=== PATIENT | female | born 1965 | race Caucasian/White ===

== ENCOUNTER 2020-05-12 17:35 | Emergency (ER) | payer MEDICAID, OTHER ==
[~2020-05-12] VITALS: Ht 170.2 cm; Wt 62.6 kg
[2020-05-12] MEDS ORDERED: OMNIPAQUE ORAL SOLN 500ml 12mg/ml PO ONE (18:06)
[2020-05-12 18:53] LABS: Hematocrit 14.9 % (36.0-46.0); Mean Corpuscular Hemoglobin 12.1 pg (28.0-32.0); Mean Corpuscular Hgb Conc. 24.3 g/dL (32.0-36.0); Mean Corpuscular Volume 49.6 fL (80.0-100.0); Platelet Count (auto) 328 10^3/uL (140-450); White Blood Cell 5.7 10^3/uL (4.4-10.8)
[2020-05-12 19:06] LABS: Red Cell Distribution Width 22.6 % (11.8-14.3)
[2020-05-12 19:08] LABS: Albumin 2.9 g/dL (3.4-5.0); Calcium 8.1 mg/dL (8.5-10.1); Potassium 4.2 mmol/L (3.5-5.1)
[2020-05-12 19:10] LABS: Bilirubin, Total 0.3 mg/dL (0.2-1.0); Total Protein 6.6 g/dL (6.4-8.2)
[2020-05-12 19:12] LABS: Band Neutrophils % (manual) 0; Basophils % (manual) 0 (0.0-2.0); Blast Cells 0; Hemoglobin 3.6 g/dL (12.2-16.2); Metamyelocytes % 0; Myelocytes % 0; Promyelocytes % 0; Reactive Lymphocytes 0
[2020-05-12 19:18] LABS: Magnesium 2.4 mg/dL (1.6-2.6)
[2020-05-12 19:56] LABS: Eosinophils % (manual) 3 (0-7); Lymphocytes % (manual) 20 (10.0-50.0); Monocytes % (manual) 8 (0-12)
[2020-05-12 20:31] VITALS: BP 116/62
[2020-05-12 20:44] VITALS: BP 119/58
[2020-05-12 20:51] LABS: INR 1.01 (0.9-1.15); Partial Thromboplastin Time 27.6 sec (23.0-31.2)
[2020-05-12 21:06] VITALS: BP_DIAS 70
[2020-05-12 22:39] VITALS: BP_SYST 112
== END 2020-05-12 22:51 | disposition left against medical advice (07) ==
LOC: ER 17:35
DX: D64.9 Anemia, unspecified (principal); R53.83 Other fatigue
CPT/HCPCS: 36415; 36430; 80053; 83735; 84484; 85007; 85027; 85045; 85610; 85730; 86850; 86900; 86901; 86920; 93005; 99285; J7030; P9016

== ENCOUNTER 2020-07-09 18:17 | Inpatient (IN) | payer MEDICAID ==
[~2020-07-09] VITALS: Ht 170.2 cm; Wt 64.1 kg
[2020-07-09 19:24] LABS: Basophils # (auto) 0.1 10 ^3/uL (0-0.2); Eosinophils # (auto) 0.2 10 ^3/uL (0-0.8); Monocytes % (auto) 7.1 % (0.0-12.0)
[2020-07-09 19:27] LABS: Basophils % (auto) 0.5 % (0.0-2.0); Eosinophils % (auto) 1.2 % (0.0-7.0); Hematocrit 17.1 % (36.0-46.0); Lymphocytes # (auto) 2.1 10 ^3/uL (0.4-5.4); Mean Corpuscular Hemoglobin 14.3 pg (28.0-32.0); Mean Corpuscular Hgb Conc. 26.7 g/dL (32.0-36.0); Mean Corpuscular Volume 53.5 fL (80.0-100.0); Monocytes # (auto) 1.2 10 ^3/uL (0-1.3); Neutrophils # (auto) 12.7 10 ^3/uL (1.6-8.6); Neutrophils % (auto) 78.2 % (37.0-80.0); Nucleated Red Blood Cells % 0.2 %; Platelet Count (auto) 382 10^3/uL (140-450); Red Blood Cells 3.19 10^6/uL (4.0-5.20); White Blood Cell 16.2 10^3/uL (4.4-10.8)
[2020-07-09 19:41] LABS: INR 1.03 (0.9-1.15)
[2020-07-09 19:42] LABS: Alanine Aminotransferase 17 U/L (13-56); Albumin 2.9 g/dL (3.4-5.0); Anion Gap 8 (5-15); Aspartate Aminotransferase 18 U/L (15-37); BUN/Creatinine Ratio 26.5; Blood Urea Nitrogen 18 mg/dL (7-18); Carbon Dioxide 25 mmol/L (21-32); Chloride 104 mmol/L (98-107); GFR African American 116 mL/min; GFR Non-African American 96 mL/min; Glucose 94 mg/dL (74-106); Potassium 3.2 mmol/L (3.5-5.1); Sodium 137 mmol/L (136-145)
[2020-07-09 19:47] LABS: Alkaline Phosphatase 102 U/L (45-117); Bilirubin, Total 0.4 mg/dL (0.2-1.0); Hemoglobin 4.5 g/dL (12.2-16.2); Red Cell Distribution Width 25.4 % (11.8-14.3); Total Protein 7.7 g/dL (6.4-8.2)
[2020-07-09] MEDS ORDERED: SODIUM CHLORIDE 0.9% 1,000 ML IV ONE (20:30)
[2020-07-09] MEDS ORDERED: VANCOMYCIN 1GM/250ML 250 ML IV ONE (20:30)
[2020-07-09] MEDS ORDERED: POTASSIUM EFFERVESENT TAB 25 MEQ PO ONE (20:30)
[2020-07-09] MEDS ORDERED: fentaNYL CITRATE 100 MCG/2 ML VL IV ONE (20:30)
[2020-07-09] MEDS ORDERED: ONDANSETRON HCL 4 MG/2 ML VIAL IV ONE (20:30)
[2020-07-09 20:52] LABS: % Iron Saturation 2.7 % (15-50)
[2020-07-09] MEDS ORDERED: traMADol HCL 50 MG TAB PO ONE (21:45)
[2020-07-09] MEDS ORDERED: MORPHINE SULF INJ 2 MG/ML SYRINGE 1ML IV PRN (23:00)
[2020-07-09] MEDS ORDERED: NITROGLYCERIN 0.4 MG SL TAB SL PRN (23:00)
[2020-07-09] MEDS ORDERED: traMADol HCL 50 MG TAB PO PRN (23:00)
[2020-07-10] VITALS (17 sets, daily range): BP systolic 98–134; BP diastolic 56–73
[2020-07-10] MEDS: MORPHINE SULF INJ 2 MG/ML SYRINGE 1ML IV PRN ×2 (01:56→06:02)
[2020-07-10] MEDS: ACETAMINOPHEN 325 MG TAB PO PRN (01:57)
[2020-07-10] MEDS ORDERED: POTA-180 PO (05:32)
[2020-07-10] MEDS ORDERED: FURO1TAB31 PO (05:32)
[2020-07-10] MEDS ORDERED: OMEP-434 PO (05:32)
[2020-07-10] MEDS: CLINDAMYCIN 300MG IV 50 ML IV SCH ×3 (06:02→21:35)
[2020-07-10] MEDS: POTASSIUM CHL 20 Meq TABLET PO SCH (07:53)
[2020-07-10] MEDS: PANTOPRAZOLE 40 MG TAB PO SCH (07:53)
[2020-07-10] MEDS: HYDROcodone-ACET 7.5/325MG TAB PO PRN (07:55)
[2020-07-10] MEDS: FUROSEMIDE 40 MG TAB PO SCH (10:00)
[2020-07-10] MEDS ORDERED: FUROSEMIDE 20 MG TAB PO SCH (10:00)
[2020-07-10 10:36] LABS: Basophils # (auto) 0.1 10 ^3/uL (0-0.2); Basophils % (auto) 0.2 % (0.0-2.0); Eosinophils # (auto) 0.1 10 ^3/uL (0-0.8); Monocytes # (auto) 1.3 10 ^3/uL (0-1.3); Neutrophils # (auto) 20.9 10 ^3/uL (1.6-8.6)
[2020-07-10 10:37] LABS: Eosinophils % (auto) 0.4 % (0.0-7.0); Hematocrit 23.2 % (36.0-46.0); Lymphocytes # (auto) 1.4 10 ^3/uL (0.4-5.4); Mean Corpuscular Hemoglobin 16.8 pg (28.0-32.0); Mean Corpuscular Hgb Conc. 27.3 g/dL (32.0-36.0); Mean Corpuscular Volume 61.6 fL (80.0-100.0); Monocytes % (auto) 5.4 % (0.0-12.0); Nucleated Red Blood Cells % 0.2 %; Platelet Count (auto) 363 10^3/uL (140-450); Red Blood Cells 3.77 10^6/uL (4.0-5.20); White Blood Cell 23.7 10^3/uL (4.4-10.8)
[2020-07-10 10:45] LABS: Red Cell Distribution Width 36.4 % (11.8-14.3)
[2020-07-10 10:47] LABS: Hemoglobin 6.3 g/dL (12.2-16.2)
[2020-07-10 10:56] LABS: Albumin 2.4 g/dL (3.4-5.0); Calcium 8.3 mg/dL (8.5-10.1); Potassium 3.5 mmol/L (3.5-5.1)
[2020-07-10 11:00] LABS: BUN/Creatinine Ratio 15.1; Bilirubin, Total 0.6 mg/dL (0.2-1.0); Total Protein 7.2 g/dL (6.4-8.2)
[2020-07-10] MEDS: ONDANSETRON HCL 4 MG/2 ML VIAL IV PRN (12:37)
[2020-07-10] MEDS: HYDROmorphone HCL 2 MG/ML VL IV PRN ×2 (12:37→21:53)
[2020-07-10] MEDS: SODIUM FERR GLUC 62.5MG/5ML 125 MG in SODIUM CHL 0.9% 100 ML IV SCH (16:56)
[2020-07-11] MEDS: CLINDAMYCIN 300MG IV 50 ML IV SCH ×3 (05:51→22:00)
[2020-07-11] MEDS: HYDROmorphone HCL 2 MG/ML VL IV PRN ×4 (06:16→22:09)
[2020-07-11 08:24] LABS: Basophils # (auto) 0.1 10 ^3/uL (0-0.2); Basophils % (auto) 0.3 % (0.0-2.0); Eosinophils # (auto) 0.1 10 ^3/uL (0-0.8); Lymphocytes # (auto) 1.2 10 ^3/uL (0.4-5.4); Neutrophils # (auto) 20.6 10 ^3/uL (1.6-8.6)
[2020-07-11 08:26] LABS: Eosinophils % (auto) 0.5 % (0.0-7.0); Hematocrit 25.9 % (36.0-46.0); Mean Corpuscular Hemoglobin 20.8 pg (28.0-32.0); Mean Corpuscular Volume 66.9 fL (80.0-100.0); Monocytes # (auto) 1.7 10 ^3/uL (0-1.3); Monocytes % (auto) 7.4 % (0.0-12.0); Neutrophils % (auto) 86.8 % (37.0-80.0); Platelet Count (auto) 285 10^3/uL (140-450); Red Blood Cells 3.87 10^6/uL (4.0-5.20); White Blood Cell 23.7 10^3/uL (4.4-10.8)
[2020-07-11 08:36] LABS: Red Cell Distribution Width 38.2 % (11.8-14.3)
[2020-07-11 08:42] LABS: Albumin 2.1 g/dL (3.4-5.0); Potassium 3.4 mmol/L (3.5-5.1)
[2020-07-11 08:51] LABS: Bilirubin, Total 0.6 mg/dL (0.2-1.0); Total Protein 6.7 g/dL (6.4-8.2)
[2020-07-11] MEDS: FUROSEMIDE 40 MG TAB PO SCH (10:22)
[2020-07-11] MEDS: PANTOPRAZOLE 40 MG TAB PO SCH (10:22)
[2020-07-11] MEDS: POTASSIUM CHL 20 Meq TABLET PO SCH (10:22)
[2020-07-11] MEDS: SODIUM FERR GLUC 62.5MG/5ML 125 MG in SODIUM CHL 0.9% 100 ML IV SCH (16:26)
[2020-07-11 19:40] VITALS: BP 126/72
[2020-07-11] MEDS: ONDANSETRON HCL 4 MG/2 ML VIAL IV PRN (22:08)
[2020-07-11] MEDS: ACETAMINOPHEN 325 MG TAB PO PRN (23:46)
[2020-07-12] VITALS: BP 117/62
[2020-07-12] MEDS: HYDROmorphone HCL 2 MG/ML VL IV PRN ×5 (02:31→23:01)
[2020-07-12 05:49] LABS: Basophils # (auto) 0 10 ^3/uL (0-0.2); Basophils % (auto) 0.3 % (0.0-2.0); Eosinophils # (auto) 0.2 10 ^3/uL (0-0.8); Hemoglobin 8.4 g/dL (12.2-16.2); Monocytes # (auto) 1.3 10 ^3/uL (0-1.3)
[2020-07-12 05:52] LABS: Eosinophils % (auto) 1.5 % (0.0-7.0); Hematocrit 27.2 % (36.0-46.0); Lymphocytes # (auto) 1.3 10 ^3/uL (0.4-5.4); Lymphocytes % (auto) 8.2 % (10.0-50.0); Mean Corpuscular Hgb Conc. 30.8 g/dL (32.0-36.0); Monocytes % (auto) 8.2 % (0.0-12.0); Neutrophils # (auto) 12.7 10 ^3/uL (1.6-8.6); Neutrophils % (auto) 81.8 % (37.0-80.0); Platelet Count (auto) 273 10^3/uL (140-450); Red Blood Cells 4.01 10^6/uL (4.0-5.20); White Blood Cell 15.5 10^3/uL (4.4-10.8)
[2020-07-12 06:10] LABS: Albumin 2.1 g/dL (3.4-5.0); Calcium 8.3 mg/dL (8.5-10.1); Potassium 3.4 mmol/L (3.5-5.1)
[2020-07-12 06:12] LABS: BUN/Creatinine Ratio 20.7
[2020-07-12 06:14] LABS: Bilirubin, Total 0.4 mg/dL (0.2-1.0); Red Cell Distribution Width 38.2 % (11.8-14.3); Total Protein 6.8 g/dL (6.4-8.2)
[2020-07-12] MEDS: CLINDAMYCIN 300MG IV 50 ML IV SCH ×3 (06:26→22:00)
[2020-07-12 08:00] VITALS: BP 109/69
[2020-07-12] MEDS: FUROSEMIDE 40 MG TAB PO SCH (10:10)
[2020-07-12] MEDS: PANTOPRAZOLE 40 MG TAB PO SCH (10:10)
[2020-07-12] MEDS: POTASSIUM CHL 20 Meq TABLET PO SCH (10:10)
[2020-07-12] MEDS: HYDROcodone-ACET 7.5/325MG TAB PO PRN (10:11)
[2020-07-12 16:23] VITALS: BP 94/61
[2020-07-12] MEDS: SODIUM FERR GLUC 62.5MG/5ML 125 MG in SODIUM CHL 0.9% 100 ML IV SCH (17:10)
[2020-07-12 18:00] VITALS: BP 119/69
[2020-07-12 22:00] VITALS: BP 105/60
[2020-07-13] MEDS: HYDROcodone-ACET 7.5/325MG TAB PO PRN (01:28)
[2020-07-13] MEDS: CLINDAMYCIN 300MG IV 50 ML IV SCH ×3 (05:15→22:00)
[2020-07-13 05:30] VITALS: BP 100/71
[2020-07-13 07:55] LABS: Albumin 2.1 g/dL (3.4-5.0); Calcium 8.4 mg/dL (8.5-10.1); Potassium 3.8 mmol/L (3.5-5.1)
[2020-07-13 07:56] LABS: Basophils # (auto) 0.1 10 ^3/uL (0-0.2); Hemoglobin 8.4 g/dL (12.2-16.2); Mean Corpuscular Hemoglobin 21.3 pg (28.0-32.0); Monocytes # (auto) 1.1 10 ^3/uL (0-1.3); Red Blood Cells 3.96 10^6/uL (4.0-5.20)
[2020-07-13 07:57] LABS: Basophils % (auto) 0.6 % (0.0-2.0); Eosinophils # (auto) 0.3 10 ^3/uL (0-0.8); Eosinophils % (auto) 3.4 % (0.0-7.0); Hematocrit 27.2 % (36.0-46.0); Lymphocytes # (auto) 1.1 10 ^3/uL (0.4-5.4); Lymphocytes % (auto) 10.6 % (10.0-50.0); Mean Corpuscular Hgb Conc. 31.1 g/dL (32.0-36.0); Mean Corpuscular Volume 68.7 fL (80.0-100.0); Neutrophils # (auto) 7.6 10 ^3/uL (1.6-8.6); Neutrophils % (auto) 74.4 % (37.0-80.0); Platelet Count (auto) 287 10^3/uL (140-450); White Blood Cell 10.2 10^3/uL (4.4-10.8)
[2020-07-13 07:58] LABS: Bilirubin, Total 0.4 mg/dL (0.2-1.0); Total Protein 6.9 g/dL (6.4-8.2)
[2020-07-13 08:16] LABS: Red Cell Distribution Width 38.8 % (11.8-14.3)
[2020-07-13] MEDS: HYDROmorphone HCL 2 MG/ML VL IV PRN ×3 (08:26→20:43)
[2020-07-13 09:00] VITALS: BP 119/77
[2020-07-13] MEDS: PANTOPRAZOLE 40 MG TAB PO SCH (09:51)
[2020-07-13] MEDS: DOCUSATE SOD 100 MG CAP PO PRN (09:51)
[2020-07-13] MEDS: POTASSIUM CHL 20 Meq TABLET PO SCH (09:51)
[2020-07-13] MEDS: FUROSEMIDE 40 MG TAB PO SCH (09:52)
[2020-07-13 13:00] VITALS: BP 95/62
[2020-07-13 17:00] VITALS: BP 101/62
[2020-07-13] MEDS: SODIUM FERR GLUC 62.5MG/5ML 125 MG in SODIUM CHL 0.9% 100 ML IV SCH (17:34)
[2020-07-13 22:00] VITALS: BP 106/63
[2020-07-14] MEDS: HYDROmorphone HCL 2 MG/ML VL IV PRN ×4 (01:29→19:04)
[2020-07-14] MEDS: HYDROcodone-ACET 7.5/325MG TAB PO PRN ×3 (03:28→16:54)
[2020-07-14] MEDS: CLINDAMYCIN 300MG IV 50 ML IV SCH ×2 (06:00→14:26)
[2020-07-14 09:00] VITALS: BP 111/63
[2020-07-14 09:29] LABS: Basophils # (auto) 0 10 ^3/uL (0-0.2); Basophils % (auto) 0.3 % (0.0-2.0); Monocytes # (auto) 0.9 10 ^3/uL (0-1.3); Neutrophils % (auto) 81.9 % (37.0-80.0)
[2020-07-14 09:30] LABS: Eosinophils # (auto) 0.1 10 ^3/uL (0-0.8); Eosinophils % (auto) 1.3 % (0.0-7.0); Hematocrit 31.6 % (36.0-46.0); Hemoglobin 9.6 g/dL (12.2-16.2); Lymphocytes % (auto) 8.6 % (10.0-50.0); Mean Corpuscular Hgb Conc. 30.3 g/dL (32.0-36.0); Mean Corpuscular Volume 69.2 fL (80.0-100.0); Monocytes % (auto) 7.9 % (0.0-12.0); Platelet Count (auto) 352 10^3/uL (140-450); Red Blood Cells 4.57 10^6/uL (4.0-5.20)
[2020-07-14 09:41] LABS: Red Cell Distribution Width 39.6 % (11.8-14.3)
[2020-07-14 09:46] LABS: Potassium 4.3 mmol/L (3.5-5.1)
[2020-07-14 09:51] LABS: Bilirubin, Total 0.3 mg/dL (0.2-1.0); Total Protein 6.9 g/dL (6.4-8.2)
[2020-07-14] MEDS: PANTOPRAZOLE 40 MG TAB PO SCH (10:44)
[2020-07-14] MEDS: FUROSEMIDE 40 MG TAB PO SCH (10:44)
[2020-07-14] MEDS: POTASSIUM CHL 20 Meq TABLET PO SCH (10:44)
[2020-07-14 13:00] VITALS: BP 113/69
[2020-07-14] MEDS: SODIUM FERR GLUC 62.5MG/5ML 125 MG in SODIUM CHL 0.9% 100 ML IV SCH (15:15)
[2020-07-14 17:00] VITALS: BP 99/63
[2020-07-14] MEDS ORDERED: VANCOMYCIN PER PHARMACY 0 MG IV SCH (17:45)
[2020-07-14] MEDS: VANCOMYCIN 1GM/250ML 250 ML IV SCH (20:14)
[2020-07-14 22:00] VITALS: BP 114/62
[2020-07-15] MEDS: HYDROcodone-ACET 7.5/325MG TAB PO PRN ×5 (00:51→23:32)
[2020-07-15] MEDS: HYDROmorphone HCL 2 MG/ML VL IV PRN ×4 (02:52→20:17)
[2020-07-15 05:00] VITALS: BP 103/53
[2020-07-15] MEDS: VANCOMYCIN 1GM/250ML 250 ML IV SCH ×2 (06:00→16:00)
[2020-07-15 06:06] LABS: Eosinophils # (auto) 0.1 10 ^3/uL (0-0.8); Hemoglobin 8.9 g/dL (12.2-16.2); Lymphocytes # (auto) 0.9 10 ^3/uL (0.4-5.4); Neutrophils # (auto) 8.6 10 ^3/uL (1.6-8.6)
[2020-07-15 06:09] LABS: Basophils # (auto) 0 10 ^3/uL (0-0.2); Basophils % (auto) 0.4 % (0.0-2.0); Lymphocytes % (auto) 8.8 % (10.0-50.0); Mean Corpuscular Hemoglobin 21.9 pg (28.0-32.0); Mean Corpuscular Hgb Conc. 31.6 g/dL (32.0-36.0); Mean Corpuscular Volume 69.1 fL (80.0-100.0); Monocytes # (auto) 0.9 10 ^3/uL (0-1.3); Monocytes % (auto) 8.4 % (0.0-12.0); Neutrophils % (auto) 81.4 % (37.0-80.0); Platelet Count (auto) 309 10^3/uL (140-450); Red Blood Cells 4.06 10^6/uL (4.0-5.20); White Blood Cell 10.6 10^3/uL (4.4-10.8)
[2020-07-15 06:22] LABS: Potassium 4.4 mmol/L (3.5-5.1)
[2020-07-15 06:28] LABS: Red Cell Distribution Width 39.6 % (11.8-14.3)
[2020-07-15 06:31] LABS: Bilirubin, Total 0.3 mg/dL (0.2-1.0); Calcium 8.2 mg/dL (8.5-10.1); Total Protein 6.5 g/dL (6.4-8.2)
[2020-07-15 09:00] VITALS: BP 106/64
[2020-07-15] MEDS: POTASSIUM CHL 20 Meq TABLET PO SCH (09:51)
[2020-07-15] MEDS: PANTOPRAZOLE 40 MG TAB PO SCH (09:51)
[2020-07-15] MEDS: FUROSEMIDE 40 MG TAB PO SCH (09:53)
[2020-07-15] MEDS ORDERED: IOHEXOL 350 MG/ML 100ML IJ ONE (12:41)
[2020-07-15 13:00] VITALS: BP 107/65
[2020-07-15] MEDS: SODIUM FERR GLUC 62.5MG/5ML 125 MG in SODIUM CHL 0.9% 100 ML IV SCH (15:10)
[2020-07-15 17:00] VITALS: BP 111/70
[2020-07-15 22:00] VITALS: BP 96/54
[2020-07-16] MEDS: VANCOMYCIN 1GM/250ML 250 ML IV SCH ×3 (02:00→21:44)
[2020-07-16] MEDS: HYDROmorphone HCL 2 MG/ML VL IV PRN ×4 (03:48→20:32)
[2020-07-16 05:53] VITALS: BP 100/62
[2020-07-16 06:05] LABS: Basophils # (auto) 0 10 ^3/uL (0-0.2); Basophils % (auto) 0.4 % (0.0-2.0); Eosinophils # (auto) 0.1 10 ^3/uL (0-0.8); Lymphocytes # (auto) 0.9 10 ^3/uL (0.4-5.4)
[2020-07-16 06:07] LABS: Eosinophils % (auto) 1.4 % (0.0-7.0); Hemoglobin 9.3 g/dL (12.2-16.2); Lymphocytes % (auto) 9.7 % (10.0-50.0); Mean Corpuscular Hemoglobin 21.8 pg (28.0-32.0); Mean Corpuscular Volume 70.4 fL (80.0-100.0); Monocytes # (auto) 0.8 10 ^3/uL (0-1.3); Monocytes % (auto) 8.9 % (0.0-12.0); Neutrophils # (auto) 7.4 10 ^3/uL (1.6-8.6); Neutrophils % (auto) 79.6 % (37.0-80.0); Nucleated Red Blood Cells % 0.1 %; Platelet Count (auto) 322 10^3/uL (140-450); Red Blood Cells 4.26 10^6/uL (4.0-5.20); White Blood Cell 9.3 10^3/uL (4.4-10.8)
[2020-07-16 06:08] LABS: Red Cell Distribution Width 39.6 % (11.8-14.3)
[2020-07-16 06:31] LABS: Albumin 2.1 g/dL (3.4-5.0); BUN/Creatinine Ratio 21.2; Calcium 8.1 mg/dL (8.5-10.1)
[2020-07-16 06:34] LABS: Bilirubin, Total 0.4 mg/dL (0.2-1.0); Total Protein 6.6 g/dL (6.4-8.2)
[2020-07-16] MEDS: FUROSEMIDE 40 MG TAB PO SCH (09:32)
[2020-07-16] MEDS: PANTOPRAZOLE 40 MG TAB PO SCH (09:32)
[2020-07-16] MEDS: POTASSIUM CHL 20 Meq TABLET PO SCH (09:32)
[2020-07-16] MEDS: SODIUM FERR GLUC 62.5MG/5ML 125 MG in SODIUM CHL 0.9% 100 ML IV SCH (15:00)
[2020-07-16 17:00] VITALS: BP 113/59
[2020-07-16] MEDS: HYDROcodone-ACET 7.5/325MG TAB PO PRN ×2 (17:41→21:39)
[2020-07-16 21:53] VITALS: BP 106/62
[2020-07-17] MEDS: HYDROmorphone HCL 2 MG/ML VL IV PRN ×6 (00:22→23:53)
[2020-07-17] MEDS: HYDROcodone-ACET 7.5/325MG TAB PO PRN ×5 (02:35→22:01)
[2020-07-17 04:45] VITALS: BP 109/68
[2020-07-17 05:30] VITALS: BP 99/68
[2020-07-17 05:51] LABS: Basophils # (auto) 0 10 ^3/uL (0-0.2); Eosinophils # (auto) 0.1 10 ^3/uL (0-0.8); Hemoglobin 8.6 g/dL (12.2-16.2); Mean Corpuscular Hemoglobin 22.6 pg (28.0-32.0)
[2020-07-17 05:53] LABS: Basophils % (auto) 0.7 % (0.0-2.0); Eosinophils % (auto) 1.6 % (0.0-7.0); Hematocrit 27.4 % (36.0-46.0); Mean Corpuscular Hgb Conc. 31.6 g/dL (32.0-36.0); Mean Corpuscular Volume 71.6 fL (80.0-100.0); Monocytes # (auto) 0.9 10 ^3/uL (0-1.3); Monocytes % (auto) 11.4 % (0.0-12.0); Neutrophils # (auto) 5.5 10 ^3/uL (1.6-8.6); Neutrophils % (auto) 73.3 % (37.0-80.0); Nucleated Red Blood Cells % 0.1 %; Platelet Count (auto) 308 10^3/uL (140-450); Red Blood Cells 3.82 10^6/uL (4.0-5.20); White Blood Cell 7.6 10^3/uL (4.4-10.8)
[2020-07-17 05:59] LABS: Red Cell Distribution Width 39.2 % (11.8-14.3)
[2020-07-17 06:08] LABS: Potassium 4.2 mmol/L (3.5-5.1)
[2020-07-17 06:16] LABS: BUN/Creatinine Ratio 27.3; Bilirubin, Total 0.3 mg/dL (0.2-1.0); Total Protein 6.6 g/dL (6.4-8.2)
[2020-07-17] MEDS: VANCOMYCIN 1GM/250ML 250 ML IV SCH ×2 (07:57→17:37)
[2020-07-17 08:00] VITALS: BP 106/61
[2020-07-17] MEDS: FUROSEMIDE 40 MG TAB PO SCH (09:51)
[2020-07-17] MEDS: PANTOPRAZOLE 40 MG TAB PO SCH (09:51)
[2020-07-17] MEDS: POTASSIUM CHL 20 Meq TABLET PO SCH (09:51)
[2020-07-17] MEDS: DOCUSATE SOD 100 MG CAP PO PRN (09:52)
[2020-07-17] MEDS: SODIUM FERR GLUC 62.5MG/5ML 125 MG in SODIUM CHL 0.9% 100 ML IV SCH (15:31)
[2020-07-17 16:00] VITALS: BP 97/50
[2020-07-17 22:00] VITALS: BP 111/68
[2020-07-18] MEDS: HYDROcodone-ACET 7.5/325MG TAB PO PRN ×5 (02:07→20:31)
[2020-07-18] MEDS: VANCOMYCIN 1GM/250ML 250 ML IV SCH ×2 (04:05→14:06)
[2020-07-18] MEDS: HYDROmorphone HCL 2 MG/ML VL IV PRN ×5 (04:05→22:53)
[2020-07-18 05:00] VITALS: BP 102/65
[2020-07-18 06:35] LABS: Eosinophils # (auto) 0.2 10 ^3/uL (0-0.8); Monocytes # (auto) 0.7 10 ^3/uL (0-1.3); Neutrophils # (auto) 5.4 10 ^3/uL (1.6-8.6)
[2020-07-18 06:37] LABS: Basophils # (auto) 0.1 10 ^3/uL (0-0.2); Basophils % (auto) 0.8 % (0.0-2.0); Eosinophils % (auto) 2.5 % (0.0-7.0); Hematocrit 29.1 % (36.0-46.0); Hemoglobin 9.1 g/dL (12.2-16.2); Lymphocytes # (auto) 1.1 10 ^3/uL (0.4-5.4); Lymphocytes % (auto) 15.5 % (10.0-50.0); Mean Corpuscular Hemoglobin 22.2 pg (28.0-32.0); Mean Corpuscular Hgb Conc. 31.1 g/dL (32.0-36.0); Mean Corpuscular Volume 71.4 fL (80.0-100.0); Monocytes % (auto) 8.8 % (0.0-12.0); Neutrophils % (auto) 72.4 % (37.0-80.0); Platelet Count (auto) 376 10^3/uL (140-450); Red Blood Cells 4.08 10^6/uL (4.0-5.20); White Blood Cell 7.4 10^3/uL (4.4-10.8)
[2020-07-18 06:47] LABS: Red Cell Distribution Width 40.2 % (11.8-14.3)
[2020-07-18 07:09] LABS: Potassium 4.3 mmol/L (3.5-5.1)
[2020-07-18 07:15] LABS: Albumin 2.1 g/dL (3.4-5.0); BUN/Creatinine Ratio 20.8; Bilirubin, Total 0.2 mg/dL (0.2-1.0); Calcium 8.6 mg/dL (8.5-10.1); Total Protein 6.8 g/dL (6.4-8.2)
[2020-07-18 08:00] VITALS: BP 111/65
[2020-07-18] MEDS: POTASSIUM CHL 20 Meq TABLET PO SCH (09:14)
[2020-07-18] MEDS: PANTOPRAZOLE 40 MG TAB PO SCH (09:15)
[2020-07-18] MEDS: FUROSEMIDE 40 MG TAB PO SCH (09:16)
[2020-07-18] MEDS ORDERED: fentaNYL CITRATE 100 MCG/2 ML VL ONE (09:42)
[2020-07-18] MEDS ORDERED: MIDAZOLAM HCL 1MG/1ML-2 ML VIAL ONE (09:42)
[2020-07-18] MEDS ORDERED: LIDOCAINE 2%HCL (LOCAL ANESTH.) INJ 20ML MDV ONE (09:43)
[2020-07-18] MEDS ORDERED: IOHEXOL 350 MG/ML 100ML IJ ONE (09:43)
[2020-07-18] MEDS ORDERED: SODIUM CHL 0.9% 0 ML ONE (09:43)
[2020-07-18] MEDS ORDERED: ANGIOMAX 250 MG VIAL IV ONE (10:09)
[2020-07-18 10:37] LABS: INR 1.02 (0.9-1.15); Partial Thromboplastin Time 29.6 sec (23.0-31.2)
[2020-07-18] MEDS: SODIUM FERR GLUC 62.5MG/5ML 125 MG in SODIUM CHL 0.9% 100 ML IV SCH (14:27)
[2020-07-18 16:00] VITALS: BP 117/74
[2020-07-18] MEDS: ACETAMINOPHEN 325 MG TAB PO PRN (19:39)
[2020-07-18] MEDS: DOCUSATE SOD 100 MG CAP PO PRN (19:39)
[2020-07-19] VITALS: BP 110/67
[2020-07-19] MEDS: VANCOMYCIN 1GM/250ML 250 ML IV SCH ×2 (00:21→10:30)
[2020-07-19] MEDS: HYDROcodone-ACET 7.5/325MG TAB PO PRN ×2 (02:40→06:38)
[2020-07-19] MEDS: HYDROmorphone HCL 2 MG/ML VL IV PRN ×2 (04:05→10:37)
[2020-07-19 06:54] LABS: Eosinophils # (auto) 0.2 10 ^3/uL (0-0.8); Hemoglobin 8.8 g/dL (12.2-16.2); Neutrophils # (auto) 7.3 10 ^3/uL (1.6-8.6); White Blood Cell 9.4 10^3/uL (4.4-10.8)
[2020-07-19 06:55] LABS: Basophils # (auto) 0.1 10 ^3/uL (0-0.2); Basophils % (auto) 1.5 % (0.0-2.0); Hematocrit 27.9 % (36.0-46.0); Lymphocytes % (auto) 10.4 % (10.0-50.0); Mean Corpuscular Hemoglobin 22.6 pg (28.0-32.0); Mean Corpuscular Hgb Conc. 31.5 g/dL (32.0-36.0); Mean Corpuscular Volume 71.8 fL (80.0-100.0); Monocytes # (auto) 0.7 10 ^3/uL (0-1.3); Monocytes % (auto) 7.7 % (0.0-12.0); Neutrophils % (auto) 78.4 % (37.0-80.0); Platelet Count (auto) 457 10^3/uL (140-450); Red Blood Cells 3.88 10^6/uL (4.0-5.20)
[2020-07-19 06:57] LABS: Albumin 2.1 g/dL (3.4-5.0); Calcium 8.5 mg/dL (8.5-10.1); Potassium 4.3 mmol/L (3.5-5.1)
[2020-07-19 07:02] LABS: BUN/Creatinine Ratio 22.6; Bilirubin, Total 0.2 mg/dL (0.2-1.0); Total Protein 7.1 g/dL (6.4-8.2)
[2020-07-19] MEDS ORDERED: RIVAROXABAN 10 MG TAB PO SCH (10:00)
[2020-07-19] MEDS: POTASSIUM CHL 20 Meq TABLET PO SCH (10:30)
[2020-07-19] MEDS: PANTOPRAZOLE 40 MG TAB PO SCH (10:30)
[2020-07-19] MEDS: FUROSEMIDE 40 MG TAB PO SCH (10:36)
[2020-07-19] MEDS: SODIUM FERR GLUC 62.5MG/5ML 125 MG in SODIUM CHL 0.9% 100 ML IV SCH (15:00)
[2020-07-19 15:58] VITALS: BP 114/69
[2020-07-19 16:00] VITALS: BP 114/81
== END 2020-07-19 17:45 | disposition home health service (06) | DRG 720 ==
LOC: ER 18:17 → TELE 18:18 → TELE-CENTR 07-11 20:43
PROVIDERS: ADMIT Internal Medicine; ATTEND Internal Medicine
PROC: 30230N1 Transfusion of Nonautologous Red Blood Cells into Peripheral Vein, Open Approach (ICD-10-PCS; principal; 2020-07-10)
PROC: B41G1ZZ Fluoroscopy of Left Lower Extremity Arteries using Low Osmolar Contrast (ICD-10-PCS; 2020-07-18)
PROC: B41F1ZZ Fluoroscopy of Right Lower Extremity Arteries using Low Osmolar Contrast (ICD-10-PCS; 2020-07-18)
DX: A41.9 Sepsis, unspecified organism (principal); E44.0 Moderate protein-calorie malnutrition; L97.819 Non-pressure chronic ulcer of other part of right lower leg with unspecified severity; L97.919 Non-pressure chronic ulcer of unspecified part of right lower leg with unspecified severity; L03.116 Cellulitis of left lower limb; L03.115 Cellulitis of right lower limb; D50.9 Iron deficiency anemia, unspecified; F17.200 Nicotine dependence, unspecified, uncomplicated; K21.9 Gastro-esophageal reflux disease without esophagitis; Z20.822 Contact with and (suspected) exposure to COVID-19; Z82.49 Family history of ischemic heart disease and other diseases of the circulatory system; Z91.19 Patient's noncompliance with other medical treatment and regimen; Z80.41 Family history of malignant neoplasm of ovary; Z68.22 Body mass index [BMI] 22.0-22.9, adult
CPT/HCPCS: 36415; 71045; 73590; 73600; 73620; 73718; 75635; 80053; 80061; 80202; 82270; 82728; 83036; 83540; 83550; 83605; 83615; 83735; 83880; 84436; 84443; 84480; 84484; 85025; 85045; 85610; 85730; 86850; 86880; 86900; 86901; 86920; 87040; 87426; 93925; 93971; 96374; 99152; G0378; J2250; J2405; J3490

== ENCOUNTER 2020-08-18 16:19 | Emergency (ER) | payer MEDICAID ==
[~2020-08-18] VITALS: Ht 170.2 cm; Wt 60.8 kg
[~2020-08-18 16:19] MED LIST: FURO1TAB31 PO; OMEP-434 PO; POTA-180 PO
[2020-08-18 16:21] VITALS: BP 115/94
== END 2020-08-18 20:05 | disposition home or self-care (01) ==
LOC: ER 16:19
DX: Z45.2 Encounter for adjustment and management of vascular access device (principal)